=== PATIENT | female | born 1940 | race Caucasian/White ===

== ENCOUNTER → 2017-04-21 09:25 | Outpatient (CLI) | payer MEDICARE, BC ==
[2014-08-27 21:30] VITALS: BMI 33.0
[~2017-04-21 09:25] MED LIST: BAYER CHEWABLE81 MG PO; METOPROLOL TAR100 M1 PO; NITROSTAT0.4 MG SL; NORVASC2.5 MG PO; PLAVIX75 MG PO; VENTOLIN HFA18 GM INH; XANAX0.5 MG PO; ZANTAC150 MG PO
== END | disposition home or self-care (01) ==
LOC: D.CT 09:25
DX: R91.8 Other nonspecific abnormal finding of lung field (principal)

== ENCOUNTER → 2018-04-04 10:32 | Outpatient (CLI) | payer MEDICARE, BC ==
[2014-08-27 21:30] VITALS: BMI 33.0
== END | disposition home or self-care (01) ==
LOC: D.RT 10:32
DX: R06.00 Dyspnea, unspecified (principal)

== ENCOUNTER 2018-04-27 12:27 | Inpatient (IN) | payer MEDICARE, BC ==
[~2018-04-27] VITALS: Ht 152.4 cm; Wt 71.2 kg
[2018-04-27] MEDS ORDERED: LANOXIN125 MCG PO (13:08)
[2018-04-27] MEDS ORDERED: FAMOTIDINE10 MG PO (13:08)
--- NOTE | 2018-04-27 13:12 | NUR ---
O2 SAT 90% IN TRIAGE, O2 @ 2L PLACED AND SAT UTE TO 95%
[2018-04-27 14:14] LABS: APTT 31.2 SECONDS (22.8-39.4); INR 1.01 (0.85-1.17); PROTIME 12.8 SECONDS (11.6-15.0)
[2018-04-27 14:18] LABS: ALKALINE PHOSPHATASE 101 U/L (46-116); ALT (SGPT) 49 U/L (10-68); BILIRUBIN - TOTAL 0.32 mg/dL (0.2-1.3); CALC OSMOLALITY 276 mosm/kg (275-300); CALCIUM 9.2 mg/dL (8.5-10.1); CARBON DIOXIDE 29.9 mmol/L (21.0-32.0); CHLORIDE - SERUM 99 mmol/L (98-107); CREATININE - SERUM 0.9 mg/dL (0.6-1.3); GLUCOSE 99 mg/dL (74-106); HEMATOCRIT 34.9 % (36.0-48.0); HEMOGLOBIN 11.2 g/dL (12-16); MCH 32.7 pg (26.0-34.0); MCHC 32.1 g/dL (31.0-37.0); MCV 101.7 fL (80.0-100.0); MEAN PLATELET VOLUME 9.2 fL (7.4-10.4); POTASSIUM - SERUM 4.1 mmol/L (3.5-5.1); PROTEIN - SERUM 7.5 g/dL (6.4-8.2); RBC 3.43 10x6/uL (4.00-5.40); RDW 13.7 % (11.5-14.5); SODIUM 137 mmol/L (136-145); UREA NITROGEN 20 mg/dL (7-18); WBC 8.5 10x3/uL (4.8-10.8); eGFR NON AFRICAN AMERICAN 64 mL/min (90-120)
[2018-04-27 14:19] LABS: PLATELET COUNT 366 10x3/uL (130-400)
[2018-04-27 14:30] LABS: CKMB 0.7 U/L (0.0-3.6); CREATINE KINASE 45 UL (21-215); PRO BNP 798 pg/mL (0-450); TROPONIN-I < 0.017 ng/mL (0.000-0.060)
[2018-04-27 14:44] LABS: ANISOCYTOSIS OCC; EOSINOPHILS 3 % (0-7); LYMPHOCYTES 14 % (15-50); MONOCYTES 10 % (2-11); NEUTROPHILS 72 % (40-80); PLATELET ESTIMATE NORMAL; ROULEAUX 1+
[2018-04-27 15:00] VITALS: BP 183/68
[2018-04-27 16:00] VITALS: BP 162/68
[2018-04-27 16:07] LABS: ALBUMIN 2.3 g/dL (3.4-5.0)
[2018-04-27 17:00] VITALS: BP 145/67
[2018-04-27 18:00] VITALS: BP 177/86
[2018-04-27 21:07] VITALS: BP 126/58; BMI 30.7
--- NOTE | 2018-04-28 01:40 | NUR ---
PATIENT ARRIVED AT 19;30 FROM OUR ED, VIA WHEELHAIR VSS T 98.2, BP 126/58, O2 95% ON O2 AT 2 LITERS, P 96, CALM AND COOPERATIVE, WILL CONTINUE TO MONITOR.
--- NOTE | 2018-04-28 02:21 | NUR ---
NO TELEMETRY AVALIBLE. TORCH OPERATOR INSTRUCTED TO CALL ONCE TELEMETRY IS AVALIBLE.
[2018-04-28 03:11] VITALS: BP 126/58
[2018-04-28 04:20] VITALS: BP 182/68
[2018-04-28 07:56] LABS: BASOPHILS 0.2 % (0-2); EOSINOPHILS 0 % (0-7); HEMATOCRIT 35.9 % (36.0-48.0); HEMOGLOBIN 11.4 g/dL (12-16); LYMPHOCYTES 17.1 % (15-50); MCH 32.3 pg (26.0-34.0); MCHC 31.8 g/dL (31.0-37.0); MCV 101.7 fL (80.0-100.0); MEAN PLATELET VOLUME 9.3 fL (7.4-10.4); MONOCYTES 1.2 % (2-11); NEUTROPHILS 80.5 % (40-80); PLATELET COUNT 360 10x3/uL (130-400); RBC 3.53 10x6/uL (4.00-5.40); RDW 13.6 % (11.5-14.5)
[2018-04-28 07:57] LABS: WBC 4.8 10x3/uL (4.8-10.8)
--- NOTE | 2018-04-28 08:00 | NUR ---
TONY BEDSIDE REPORT. AM ROUNDS COMPLETED. VSS, PT AAO X4. PT SITTING UP IN BED WITH EYES OPEN. ASSIST PT TO THE BATHROOM AND BACK. PT HAD X1 BOWEL MOVEMENT THIS AM. PT DENIES NEEDS FOR PAIN. WILL CONTINUE PLAN OF CARE. CL IN REACH BED IN LOW.
[2018-04-28 08:20] LABS: ALBUMIN 2.2 g/dL (3.4-5.0); ANION GAP 16.7 mmol/L (8-16); BILIRUBIN - TOTAL 0.26 mg/dL (0.2-1.3); CALCIUM 9.1 mg/dL (8.5-10.1); CARBON DIOXIDE 27.1 mmol/L (21.0-32.0); CREATININE - SERUM 0.9 mg/dL (0.6-1.3); POTASSIUM - SERUM 3.8 mmol/L (3.5-5.1); PROTEIN - SERUM 7.8 g/dL (6.4-8.2)
[2018-04-28 09:09] VITALS: BP 135/63
--- NOTE | 2018-04-28 11:46 | NUR ---
PT STATES SHE IS FEELING "WOOZY" AND HER HAND IS A LITTLE "SHAKY" ASSESSED PT VS. BP 185/56. HELD PT SOLU-MEDROL. NO PRN MED ORDERED FOR BP AT THE MOMENT WILL CTM. CL IN REACH BED IN LOW.
[2018-04-28 12:27] VITALS: BMI 30.6
[2018-04-28 14:21] VITALS: BP 171/58
--- NOTE | 2018-04-28 16:00 | NUR ---
ASSESSED PT BP. BP STILL ELEVATED. NOTIFIED PT MANAGING BROKER. NO MEDICATION PRN BP MEDS ORDERED AT THIS TIME.
[2018-04-28 16:45] VITALS: BP 170/61
[2018-04-28 17:26] VITALS: Ht 152.4 cm; Wt 71.2 kg
[2018-04-28 17:49] LABS: % SATURATION 23 % (15-55); IRON 43 ug/dl (35-150); TOTAL IRON BIND CAPACITY 184 ug/dl (260-445); UNSAT IRON BIND CAPACITY 141 ug/dl (150-375)
--- NOTE | 2018-04-28 18:14 | NUR ---
PT IV INFILTRATED. REVOVED THE OLD IV CLEAN SITE, PLACED A GAUZE AND TAPE ON THE SITE. STATED A NEW IV ON RIGHT WRIST. PT TOLERATED WELL. WILL CTM. BED IN LOW CL IN REACH
--- NOTE | 2018-04-28 19:30 | NUR ---
DR DUBOSE ON FLOOR. INFORMED DR OF MORRO WELLS.
--- NOTE | 2018-04-28 19:46 | NUR ---
PT CALLED NEEDING TO USE RESTROOM. ASSISTED TO RESTROOM AND BACK TO BED. PT COMPLAINING ABOUT AMOUNT OF LAB DRAWS DONE ON HER TODAY. NAME AND DATE PLACED ON BOARD. BEDLOW AND CALL LIGHT IN REACH. PT ON 2L O2 NC. PT WILL CALL FOR ASSIST WHEN NEEDED. WILL CPOC
--- NOTE | 2018-04-28 20:51 | NUR ---
PT UP TO USE RESTROOM. ASSISTED BACK TO BED GAIT STEADY ONLY NEEDED ASSIST WITH IV TUBING. PT WANTS TO BE UNHOOKED IF ANTIBIOTICS ARE DONE STATES SHE URINATES ABOUT EVERY 45 MINS. S/L RIGHT WRIST IV. PT DENIES ANY OTHER NEEDS AT THIS TIME. NO S/S OF DISTRESS. PT HAS A COUGH STATES IS NON PRODUCTIVE. WILL CPOC
[2018-04-28 21:45] VITALS: BP 142/68
--- NOTE | 2018-04-28 22:38 | NUR ---
ONE OF THE XANAX PILLS FELL INTO TRASH CAN WITNESSED BY LAKSHMI BELL RN. WASTED THE 0.25 OF XANAX AND HAD PATCH DRILLER PULL A NEW 0.25MG OF XANAX.
--- NOTE | 2018-04-28 23:44 | NUR ---
PT STATES SHE WILL NOT GET A 20G PLACED FOR A CTA, STATES DR TOLD HER SHE MAY HAVE A BLOOD CLOT. SPOKE WITH PT ABOUT RISK ASSOCIATED WITH A BLOOD CLOT AND PT VERBALIZED UNDERSTANDING.
--- NOTE | 2018-04-29 00:43 | NUR ---
UNABLE TO PLACE ON TELEMETRY NO TELEMETRY AVALIBLE. MERCHANDISE EXECUTIVE VERBALIZED UNDERSTANDING ONCE AVALIBLE TO ALERT NURSE
--- NOTE | 2018-04-29 00:46 | NUR ---
PT REFUSED TO BE HOOKED TO FLUIDS DUE TO URINATING ALL NIGHT LONG
--- NOTE | 2018-04-29 03:46 | NUR ---
PT UP TO RESTROOM. UP AD ROMEL. PT DENIES ANY NEEDS. NO S/S OF DISTRESS. BEDLOW AND CALL LIGHT IN REACH. WILL CPOC
[2018-04-29 05:28] VITALS: BP 109/40; BP 118/66
--- NOTE | 2018-04-29 06:17 | NUR ---
PT RESTING IN BED. PT HAS NO S/S OF DISTRESS. DENIES ANY NEEDS. PT COUGHING, STATES IT IS JUST SOME FLEM. PT DENIES ANY NEEDS. NO S/S OF DISTRESS. BEDLOW AND CALL LIGHT IN REACH. WILL CPOC
[2018-04-29 08:05] VITALS: BP 104/39
--- NOTE | 2018-04-29 08:57 | NUR ---
PT ALERT X 4. BREATH SOUNDS DIMINISHED TO LOWER LOBES, 2L O2 PER NC. IV TO RIGHT WRIST, SALINE LOCKED. +1 EDEMA TO LOWER EXTREMITIES. BP LOW THIS MORNING, PT ASYMPTOMATIC, STATES NOT NORMAL FOR HER BP TO RUN THIS LOW. PT REPORTING NEEDING TO HAVE A BOWEL MOVEMENT BUT UNABLE. BED LOW, CALL LIGHT IN REACH, NO OTHER NEEDS.
[2018-04-29 11:32] VITALS: BP 131/63
[2018-04-29 15:16] LABS: BASOPHILS 0 % (0-2); EOSINOPHILS 0 % (0-7); HEMATOCRIT 31.6 % (36.0-48.0); HEMOGLOBIN 9.9 g/dL (12-16); IMMATURE GRANULOCYTES 0.7 % (0-5); MCH 31.9 pg (26.0-34.0); MCHC 31.3 g/dL (31.0-37.0); MCV 101.9 fL (80.0-100.0); MEAN PLATELET VOLUME 9.1 fL (7.4-10.4); MONOCYTES 1.7 % (2-11); NEUTROPHILS 89.6 % (40-80); PLATELET COUNT 392 10x3/uL (130-400); RDW 13.6 % (11.5-14.5); WBC 7.1 10x3/uL (4.8-10.8)
[2018-04-29 15:24] LABS: ANION GAP 12.9 mmol/L (8-16); CALCIUM 8.2 mg/dL (8.5-10.1); CARBON DIOXIDE 29.1 mmol/L (21.0-32.0); CREATININE - SERUM 1.1 mg/dL (0.6-1.3)
[2018-04-29 15:43] VITALS: BP 118/51
[2018-04-29 16:50] LABS: APPEARANCE CLEAR (CLEAR); BILIRUBIN NEGATIVE (NEGATIVE); COLOR YELLOW (YELLOW); EPITHELIAL CELLS 0-5 /hpf (0-5); GLUCOSE 100 mg/dL (NEGATIVE); KETONE NEGATIVE (NEGATIVE); NITRITE NEGATIVE (NEGATIVE); PROTEIN NEGATIVE (NEGATIVE); RED CELLS - URINE NONE SEEN /hpf (0-5); UROBILINOGEN NORMAL (NORMAL); WHITE CELLS - URINE NSEEN /hpf (0-5)
[2018-04-29 20:00] VITALS: BP 115/58
--- NOTE | 2018-04-29 20:06 | NUR ---
PATIENT RESTING IN BED WITH NO S/S OF DISTRESS AND DENIES NEEDS AT THIS TIME. BED IN LOWEST POSITION AND CALL LIGHT WITHIN REACH. ENCOURAGED THE PATIENT TO CALL IF SHE HAS NEEDS.
--- NOTE | 2018-04-29 20:48 | NUR ---
PATIENT RESTING IN BED WITH C/O PAIN AT IV SITE. SWELLING AND REDNESS NOTED. REMOVED PATIENT'S IV WITH CATH TIP INTACT. PATIENT REFUSED TO ALLOW ME TO RESITE HER IV. I EXPLAINED TO THE PATIENT THAT I WOULD NOT BE ABLE TO GIVE HER ANY OF HER IV MEDS OR FLUIDS ORDERED. THE PATIENT VERBALIZED UNDERSTANDING. ENCOURAGED THE PATIENT TO CALL IF SHE HAS FURTHER NEEDS.
--- NOTE | 2018-04-29 23:40 | NUR ---
PATIENT STATED SHE DOES NOT WANT HER BREATHING TREATMENT AT THIS TIME
--- NOTE | 2018-04-29 23:40 | NUR ---
PATIENT RESTING IN BED WITH EYES CLOSED AND NO S/S OF DISTRESS. BED IN LOWEST POSITION AND CALL LIGHT WITHIN REACH. ENCOURAGED THE PATIENT TO CALL IF SHE HAS NEEDS.
[2018-04-29 23:42] VITALS: BP 157/52
[2018-04-30 04:00] VITALS: BP 139/52
[2018-04-30 07:31] LABS: BASOPHILS 0 % (0-2); EOSINOPHILS 0 % (0-7); HEMATOCRIT 32.6 % (36.0-48.0); HEMOGLOBIN 10.2 g/dL (12-16); IMMATURE GRANULOCYTES 1.1 % (0-5); LYMPHOCYTES 14.8 % (15-50); MCH 31.9 pg (26.0-34.0); MCHC 31.3 g/dL (31.0-37.0); MCV 101.9 fL (80.0-100.0); MEAN PLATELET VOLUME 9.1 fL (7.4-10.4); MONOCYTES 4.5 % (2-11); NEUTROPHILS 79.6 % (40-80); PLATELET COUNT 430 10x3/uL (130-400); RDW 13.4 % (11.5-14.5)
[2018-04-30 07:46] LABS: CALCIUM 8.6 mg/dL (8.5-10.1); CARBON DIOXIDE 30.8 mmol/L (21.0-32.0); POTASSIUM - SERUM 3.8 mmol/L (3.5-5.1)
[2018-04-30 08:31] VITALS: BP 106/45
[2018-04-30] MEDS ORDERED: OMNICEF300 MG PO (09:33)
[2018-04-30] MEDS ORDERED: ZITHROMAX500 MG PO (09:33)
--- NOTE | 2018-04-30 13:43 | NUR ---
DISCHARGE PAPERS SIGNED, ALL QUESTIONS ANSWERED. ESCORTED OUT BY WHEELCHAIR.
[2018-05-01 11:14] LABS: FOLATE (FOLIC ACID) - SERUM 6.1 ng/mL (>3.0)
== END 2018-04-30 13:44 | disposition home or self-care (01) | DRG 193 ==
LOC: D.ER 12:27 → D.EDHOLD 17:02 → D.M3 17:02
PROVIDERS: Family Medicine; ADMIT Internal Medicine Nephrology
DX: J18.1 Lobar pneumonia, unspecified organism (principal); J96.21 Acute and chronic respiratory failure with hypoxia; J44.0 Chronic obstructive pulmonary disease with (acute) lower respiratory infection; J44.1 Chronic obstructive pulmonary disease with (acute) exacerbation; N17.9 Acute kidney failure, unspecified; D53.9 Nutritional anemia, unspecified; I10 Essential (primary) hypertension; E78.5 Hyperlipidemia, unspecified; I25.10 Atherosclerotic heart disease of native coronary artery without angina pectoris; Z95.1 Presence of aortocoronary bypass graft; K21.9 Gastro-esophageal reflux disease without esophagitis; F41.9 Anxiety disorder, unspecified

== ENCOUNTER → 2018-09-08 11:01 | Outpatient (CLI) | payer MEDICARE, BC ==
[2018-04-28 17:26] VITALS: BMI 30.6
[~2018-09-08 11:01] MED LIST changes: +FAMOTIDINE10 MG PO; +LANOXIN125 MCG PO; +OMNICEF300 MG PO; +ZITHROMAX500 MG PO
== END | disposition home or self-care (01) ==
LOC: D.RT 11:00
PROVIDERS: ATTEND Internal Medicine Pulmonary Disease
DX: J44.9 Chronic obstructive pulmonary disease, unspecified (principal)